=== PATIENT | male | born 1965 | race Caucasian/White ===

== ENCOUNTER 2022-02-13 09:21 | Inpatient (IN) | payer BC ==
[2022-02-13 10:23] LABS: #Basophils 0.1 10x3/uL (0.0-0.2); #Eosinphils 0.1 10x3/uL (0.0-0.5); #Monocytes 0.5 10x3/uL (0.0-1.1); #Neutrophils 7.9 10x3/uL (1.5-8.4); %Basophils 0.6 % (0.0-2.0); %Eosinophils 1.3 % (0.0-6.0); %Lymphocytes 14.3 % (18.0-47.0); %Neutrophils 78.4 % (40.0-75.0); Mean Corpuscular HGB CONC 34.8 g/dL (32.0-36.0); Mean Corpuscular Hemoglobin 29.9 pg (27.0-33.0); Mean Platelet Volume 10.3 fl (7.4-10.4); Platelet Count 254 10x3/uL (150-450); RBC Distribution Width 13.2 % (11.5-14.5); Red Blood Cell (RBC) Count 5.01 10x6/uL (4.32-5.72); White Blood Cell (WBC) Count 10.1 10x3/uL (3.5-10.5)
[2022-02-13 10:30] LABS: ALT (SGPT) 12 U/L (8-55); AST (SGOT) 7 U/L (5-34); Albumin 4.4 g/dL (3.5-5.0); Alkaline Phosphatase 71 U/L (40-110); Anion Gap 16 mmol/L (10-20); BUN (Urea Nitrogen) 17 mg/dL (8.4-25.7); Calc. Creatinine Clearance 0 mL/min (70-130); Calcium 8.6 mg/dL (7.8-10.44); Carbon Dioxide 26 mmol/L (22-29); Chloride 96 mmol/L (98-107); Globulin 2.8 g/dL (2.4-3.5); Glucose 526 mg/dL (70-105); Lipase 14 U/L (8-78); Potassium 4.2 mmol/L (3.5-5.1); Protein, Total 7.2 g/dL (6.0-8.3); Sodium 134 mmol/L (136-145)
[2022-02-13] MEDS ORDERED: Nitroglycerin 2% Ointment 1 INCH/1 GM Packet ONE (11:03)
[2022-02-13] MEDS ORDERED: Aspirin Chewable 81 MG TAB ONE (11:03)
[2022-02-13] MEDS ORDERED: Insulin Regular 300 UNITS/3 ML VIAL ONE (13:16)
[2022-02-13] MEDS ORDERED: Nitroglycerin 0.4 MG TAB (25 Tab Bottle) SL PRN (15:28)
[2022-02-13] MEDS ORDERED: HYDROcodone/Acetaminophen 5/325 mg Tablet PO PRN (15:30)
[2022-02-13] MEDS ORDERED: Ondansetron PF 4 MG/2 ML Vial IVP PRN (15:30)
[2022-02-13] MEDS ORDERED: Ondansetron ODT 4 MG TAB PO PRN (15:30)
[2022-02-13] MEDS ORDERED: Dextrose 5% in Water 1,000 ML IV PRN (15:32)
[2022-02-13] MEDS ORDERED: Dextrose 50% Abboject 50 ML SYRINGE SLOW IVP PRN (15:32)
[2022-02-13] MEDS ORDERED: hydrALAZINE 20 MG/ML VIAL SLOW IVP PRN (15:34)
[2022-02-13] MEDS ORDERED: Nicotine 7 MG PATCH TD PRN (15:37)
[2022-02-13] MEDS ORDERED: Electrolyte Replacement Protocol 1 EACH FS PRN (15:45)
[2022-02-13 15:56] VITALS: BMI 28.8
[2022-02-13 16:56] LABS: Troponin I Less than 0.010 ng/mL (< 0.028)
[2022-02-13] MEDS: HumaLOG 300 UNITS/3 ML VIAL SC PRN ×2 (17:47→21:01)
[2022-02-13] MEDS: metFORMIN 500 MG TAB PO SCH ×2 (17:47→20:38)
[2022-02-13 19:00] LABS: SARS-CoV-2 NAA Rapid Test Not Detected (NotDetected)
[2022-02-13 19:11] LABS: Troponin I Less than 0.010 ng/mL (< 0.028)
[2022-02-13] MEDS: Nitroglycerin 2% Ointment 1 INCH/1 GM Packet TOP SCH (22:42)
[2022-02-13] MEDS: Atorvastatin Calcium 10 MG TAB PO SCH (22:42)
[2022-02-14 04:31] LABS: #Basophils 0.1 10x3/uL (0.0-0.2); #Eosinphils 0.3 10x3/uL (0.0-0.5); #Monocytes 0.5 10x3/uL (0.0-1.1); #Neutrophils 4.7 10x3/uL (1.5-8.4); %Basophils 0.9 % (0.0-2.0); %Eosinophils 4.1 % (0.0-6.0); %Lymphocytes 28.4 % (18.0-47.0); %Monocytes 6.9 % (0.0-10.0); %Neutrophils 59.3 % (40.0-75.0); Hemoglobin 14.3 g/dL (13.5-17.5); Mean Corpuscular HGB CONC 34.5 g/dL (32.0-36.0); Mean Corpuscular Hemoglobin 29.5 pg (27.0-33.0); Mean Corpuscular Volume 85.7 fl (81.2-95.1); Mean Platelet Volume 10.6 fl (7.4-10.4); Platelet Count 254 10x3/uL (150-450); RBC Distribution Width 13.5 % (11.5-14.5); Red Blood Cell (RBC) Count 4.84 10x6/uL (4.32-5.72); White Blood Cell (WBC) Count 7.9 10x3/uL (3.5-10.5)
[2022-02-14 04:41] LABS: Anion Gap 14 mmol/L (10-20); BUN (Urea Nitrogen) 18 mg/dL (8.4-25.7); Calc. Creatinine Clearance 109 mL/min (70-130); Calcium 8.7 mg/dL (7.8-10.44); Carbon Dioxide 27 mmol/L (22-29); Cardiac Risk 5.2 (Less than 4.5); Chloride 100 mmol/L (98-107); Cholesterol 181 mg/dl (< 200 Desired); Glucose 355 mg/dL (70-105); HDL Cholesterol 35 mg/dL (>60 Neg Risk); LDL Cholesterol, Calculated 107 mg/dL; Magnesium 1.9 mg/dL (1.6-2.6); Potassium 4.2 mmol/L (3.5-5.1); Sodium 137 mmol/L (136-145); Triglycerides 195 mg/dL (Less than 150)
[2022-02-14] MEDS ORDERED: Magnesium 2 GM/50 ML(in water) 2 GM in Premix Bag 1 BAG IVPB SCH (06:00)
[2022-02-14] MEDS: Nitroglycerin 2% Ointment 1 INCH/1 GM Packet TOP SCH ×3 (06:30→22:08)
[2022-02-14] MEDS: HumaLOG 300 UNITS/3 ML VIAL SC PRN ×5 (06:33→21:24)
[2022-02-14] MEDS: glyBURIDE 5 MG TAB PO SCH ×2 (07:47→09:36)
[2022-02-14] MEDS: Lisinopril 2.5 MG TAB PO SCH (08:52)
[2022-02-14] MEDS: Aspirin Chewable 81 MG TAB PO SCH (08:52)
[2022-02-14] MEDS ORDERED: Alogliptin 6.25 MG TAB PO SCH ×2 (09:00)
[2022-02-14] MEDS ORDERED: Enoxaparin Sodium 40 MG/0.4 ML SYRINGE SC SCH (09:00)
[2022-02-14 12:33] LABS: Hemoglobin A1c 10.2 % (4.0-6.0)
[2022-02-14] MEDS ORDERED: Communication Order-Pharmacy FS SCH (13:00)
[2022-02-14] MEDS ORDERED: Prevnar 13-Val Conj/PF 0.5 ML SYRINGE IM ONE (16:45)
[2022-02-14] MEDS ORDERED: Gabapentin 100 MG CAP PO SCH (21:00)
[2022-02-14] MEDS ORDERED: Lantus 1000 UNITS/10 ML VIAL SC SCH (21:00)
[2022-02-14] MEDS: Atorvastatin Calcium 10 MG TAB PO SCH (21:18)
[2022-02-15 05:00] LABS: INR-International Normal Ratio 0.9; PTT 24.6 sec (22.0-33.0); Prothrombin Time 10.3 sec (9.5-12.1)
[2022-02-15 05:06] LABS: #Basophils 0.1 10x3/uL (0.0-0.2); #Eosinphils 0.3 10x3/uL (0.0-0.5); #Monocytes 0.6 10x3/uL (0.0-1.1); %Basophils 0.9 % (0.0-2.0); %Eosinophils 4.1 % (0.0-6.0); %Lymphocytes 33.3 % (18.0-47.0); Hemoglobin 13.6 g/dL (13.5-17.5); Mean Corpuscular HGB CONC 35.1 g/dL (32.0-36.0); Mean Corpuscular Hemoglobin 29.9 pg (27.0-33.0); Mean Corpuscular Volume 85.3 fl (81.2-95.1); Mean Platelet Volume 10.7 fl (7.4-10.4); Platelet Count 241 10x3/uL (150-450); RBC Distribution Width 13.2 % (11.5-14.5); Red Blood Cell (RBC) Count 4.55 10x6/uL (4.32-5.72); White Blood Cell (WBC) Count 7.5 10x3/uL (3.5-10.5)
[2022-02-15 05:07] LABS: ALT (SGPT) 11 U/L (8-55); AST (SGOT) 6 U/L (5-34); Albumin 3.5 g/dL (3.5-5.0); Alkaline Phosphatase 61 U/L (40-110); Anion Gap 13 mmol/L (10-20); BUN (Urea Nitrogen) 16 mg/dL (8.4-25.7); Bilirubin, Total 0.8 mg/dL (0.2-1.2); Calc. Creatinine Clearance 127 mL/min (70-130); Calcium 8.3 mg/dL (7.8-10.44); Carbon Dioxide 27 mmol/L (22-29); Chloride 101 mmol/L (98-107); Globulin 2.4 g/dL (2.4-3.5); Glucose 226 mg/dL (70-105); Potassium 3.7 mmol/L (3.5-5.1); Protein, Total 5.9 g/dL (6.0-8.3); Sodium 137 mmol/L (136-145)
[2022-02-15] MEDS: Aspirin Chewable 81 MG TAB PO SCH (06:22)
[2022-02-15] MEDS: Nitroglycerin 2% Ointment 1 INCH/1 GM Packet TOP SCH ×2 (06:23→14:25)
[2022-02-15] MEDS: Lisinopril 2.5 MG TAB PO SCH (06:24)
[2022-02-15] MEDS ORDERED: Magnesium 2 GM/50 ML(in water) 2 GM in Premix Bag 1 BAG IVPB SCH (07:00)
[2022-02-15] MEDS ORDERED: Nitroglycerin 50 MG/250 ML BOT 250 ML ONE (07:44)
[2022-02-15] MEDS ORDERED: Heparin 10,000 UNITS/ 10 ML VIAL ONE (07:44)
[2022-02-15] MEDS ORDERED: Lidocaine 1% MPF 2 ML VIAL ONE (07:44)
[2022-02-15] MEDS ORDERED: Lidocaine 1% (PF) 30 ML VIAL ONE (07:44)
[2022-02-15] MEDS ORDERED: Verapamil 5 MG/2 ML VIAL ONE (07:45)
[2022-02-15] MEDS ORDERED: Adenosine 6 MG/2 ML VIAL ONE (07:45)
[2022-02-15] MEDS ORDERED: Bivalirudin 250 MG VIAL ONE (07:45)
[2022-02-15] MEDS ORDERED: Fentanyl 100 MCG/2 ML VIAL ONE (08:16)
[2022-02-15] MEDS ORDERED: Midazolam HCl 2 mg/2 ml Vial ONE (08:17)
[2022-02-15] MEDS ORDERED: Iopamidol 300 61% 100 ML VIAL FS ONE (08:50)
[2022-02-15] MEDS ORDERED: Sodium Chloride 0.9% 200 ML IV PRN (08:52)
[2022-02-15] MEDS ORDERED: Acetaminophen/Codeine 30-300mg Tablet PO PRN ×2 (08:52)
[2022-02-15] MEDS ORDERED: Nitroglycerin 0.4 MG TAB (25 Tab Bottle) SL PRN (08:52)
[2022-02-15] MEDS ORDERED: Lantus 1000 UNITS/10 ML VIAL SC SCH (09:00)
[2022-02-15 10:51] VITALS: BP 117/84; TEMP 97
[2022-02-15] MEDS ORDERED: HumaLOG 300 UNITS/3 ML VIAL SC PRN ×2 (12:00)
[2022-02-15] MEDS: HumaLOG 300 UNITS/3 ML VIAL SC PRN ×2 (12:04→16:07)
[2022-02-16] MEDS ORDERED: glyBURIDE 5 MG TAB PO SCH (08:00)
[2022-02-16] MEDS ORDERED: Alogliptin 6.25 MG TAB PO SCH (09:00)
== END 2022-02-15 16:30 | disposition short-term general hospital (02) | DRG 287 ==
LOC: CSHERS 09:21 → CSHTELE 15:21 → INTOOBSV 15:21 → OBSVTOIN 02-15 11:00
PROVIDERS: ADMIT Family Medicine; ATTEND Emergency Medicine
PROC: 4A023N7 Measurement of Cardiac Sampling and Pressure, Left Heart, Percutaneous Approach (ICD-10-PCS; principal; 2022-02-15)
PROC: B2111ZZ Fluoroscopy of Multiple Coronary Arteries using Low Osmolar Contrast (ICD-10-PCS; 2022-02-15)
PROC: B2151ZZ Fluoroscopy of Left Heart using Low Osmolar Contrast (ICD-10-PCS; 2022-02-15)
DX: I25.110 Atherosclerotic heart disease of native coronary artery with unstable angina pectoris (principal); Z20.822 Contact with and (suspected) exposure to COVID-19; I10 Essential (primary) hypertension; R55 Syncope and collapse; E78.5 Hyperlipidemia, unspecified; F17.210 Nicotine dependence, cigarettes, uncomplicated; E11.42 Type 2 diabetes mellitus with diabetic polyneuropathy; Z80.8 Family history of malignant neoplasm of other organs or systems; Z83.6 Family history of other diseases of the respiratory system; Z71.6 Tobacco abuse counseling; Z79.82 Long term (current) use of aspirin; Z79.899 Other long term (current) drug therapy; Z79.84 Long term (current) use of oral hypoglycemic drugs; I25.2 Old myocardial infarction; Z86.73 Personal history of transient ischemic attack (TIA), and cerebral infarction without residual deficits
CPT/HCPCS: 36415; 36416; 71045; 71275; 80048; 80053; 80061; 83036; 83690; 83735; 83880; 84100; 84443; 84484; 85025; 85610; 85730; 93005; 93306; 93459; 93880; 94760; 96374; 96376; 99152; C1769; C1894; G0378; J0153; J0583; J1644; J1815; J2001; J2250; J3010; J3475; U0002

== ENCOUNTER 2023-06-18 14:05 | Inpatient (IN) | payer BC ==
[2023-06-18] MEDS ORDERED: Glucagon 1 MG/ML KIT IM PRN (15:36)
[2023-06-18] MEDS ORDERED: Dextrose 5% in Water 1,000 ML IV PRN (15:36)
[2023-06-18] MEDS ORDERED: Promethazine HCl 12.5 MG in Sodium Chloride 0.9% 50 ML IVPB PRN (16:03)
[2023-06-18] MEDS ORDERED: Sodium Chloride 0.9% 1,000 ML IV SCH (16:15)
[2023-06-18 16:49] VITALS: BMI 29.6
[2023-06-18 16:55] LABS: Actual Bicarbonate (HCO3v) 13.4 mEq/L (22-28); Base Excess -13.5 mEq/L (-2 - +2); Calcium, Ionized (venous) 1.07 mmol/L (1.16-1.32); Chloride (VBG) 104 mmol/L (98-106); Critical Notified Whom: NUGJU; Hematocrit-VBG 47 % (42.0-52.0); Hemoglobin (Hb) 15.9 g/dL (13.1-17.2); Potassium (VBG) 4.27 mmol/L (3.70-5.30); Puncture Site Other Site; RapidComm Collect By CBN; Sodium 145.4 mmol/L (133-146); pH (venous) 7.203 (7.32-7.43)
[2023-06-18] MEDS ORDERED: Ondansetron HCl/PF 8 MG, Admixture Fee 1 EACH in Sodium Chloride 0.9% 50 ML IVPB SCH (17:00)
[2023-06-18 17:07] LABS: #Basophils 0.1 10x3/uL (0.0-0.2); #Monocytes 0.9 10x3/uL (0.0-1.1); #Neutrophils 16.2 10x3/uL (1.5-8.4); %Basophils 0.3 % (0.0-2.0); %Lymphocytes 6.2 % (18.0-47.0); %Monocytes 4.7 % (0.0-10.0); Hematocrit 48.3 % (38.8-50.0); Hemoglobin 15.3 g/dL (13.5-17.5); Mean Corpuscular HGB CONC 31.7 g/dL (32.0-36.0); Mean Corpuscular Volume 88.5 fl (81.2-95.1); Mean Platelet Volume 10.7 fl (7.4-10.4); Platelet Count 291 10x3/uL (150-450); RBC Distribution Width 14.2 % (11.5-14.5); Red Blood Cell (RBC) Count 5.46 10x6/uL (4.32-5.72); White Blood Cell (WBC) Count 18.4 10x3/uL (3.5-10.5)
[2023-06-18 17:24] LABS: Anion Gap 28 mmol/L (10-20); BUN (Urea Nitrogen) 23 mg/dL (8.4-25.7); Calc. Creatinine Clearance 88 mL/min (70-130); Calcium 8.4 mg/dL (7.8-10.44); Carbon Dioxide 13 mmol/L (22-29); Chloride 105 mmol/L (98-107); Estimated GFR 75; Glucose 258 mg/dL (70-105); Phosphorus 4.1 mg/dL (2.3-4.7); Potassium 4.3 mmol/L (3.5-5.1); Sodium 142 mmol/L (136-145)
[2023-06-18] MEDS ORDERED: SODIUM BICARBONATE IV SCH (18:00)
[2023-06-18] MEDS ORDERED: ADMIXTURE FEE IV SCH (18:00)
[2023-06-18] MEDS ORDERED: SODIUM CHLORIDE IV SCH (18:00)
[2023-06-18] MEDS ORDERED: NS 0.9% w/ 20 MEQ KCL 1,000 ML IV PRN (18:26)
[2023-06-18] MEDS ORDERED: Dextrose 50% Abboject 50 ML SYRINGE SLOW IVP PRN (18:26)
[2023-06-18] MEDS ORDERED: Sodium Chloride 0.9% 1,000 ML IV PRN ×4 (18:26)
[2023-06-18] MEDS ORDERED: Dextrose 5 %-0.45 % NaCl 1,000 ML IV PRN (18:26)
[2023-06-18] MEDS ORDERED: Electrolyte Replacement Protocol 1 EACH IVPB PRN (18:26)
[2023-06-18 19:13] LABS: Anion Gap 29 mmol/L (10-20); BUN (Urea Nitrogen) 22 mg/dL (8.4-25.7); Calc. Creatinine Clearance 91 mL/min (70-130); Calcium 8.7 mg/dL (7.8-10.44); Carbon Dioxide 14 mmol/L (22-29); Chloride 106 mmol/L (98-107); Estimated GFR 77; Glucose 230 mg/dL (70-105); Potassium 4.2 mmol/L (3.5-5.1); Sodium 145 mmol/L (136-145)
[2023-06-18] MEDS ORDERED: INSULIN REGULAR IN 0.9 % NACL 100 UNITS in Premix Bag 1 BAG IVPB SCH (19:15)
[2023-06-18 19:18] LABS: Troponin I Less than 0.010 ng/mL (< 0.028)
[2023-06-18] MEDS: Ondansetron PF 4 MG/2 ML Vial IVP PRN (19:18)
[2023-06-18] MEDS: Pantoprazole 80 MG in Sodium Chloride 0.9% 100 ML IVP SCH (19:22)
[2023-06-18 19:43] LABS: Lactic Acid 2.6 mmol/L (0.5-2.2)
[2023-06-18 20:50] LABS: SARS-CoV-2 NAA Rapid Test Not Detected (NotDetected)
[2023-06-18] MEDS: NS 0.9% w/ 20 MEQ KCL 1,000 ML IV PRN ×2 (21:09→23:23)
[2023-06-18] MEDS: Dextrose 50% Abboject 50 ML SYRINGE SLOW IVP PRN ×2 (21:10→22:12)
[2023-06-18 21:54] LABS: Anion Gap 24 mmol/L (10-20); BUN (Urea Nitrogen) 21 mg/dL (8.4-25.7); Calc. Creatinine Clearance 92 mL/min (70-130); Calcium 8.4 mg/dL (7.8-10.44); Carbon Dioxide 16 mmol/L (22-29); Chloride 108 mmol/L (98-107); Estimated GFR 79; Glucose 165 mg/dL (70-105); Potassium 3.8 mmol/L (3.5-5.1); Sodium 144 mmol/L (136-145)
[2023-06-18 21:57] LABS: Troponin I Less than 0.010 ng/mL (< 0.028)
[2023-06-19] MEDS: Dextrose 50% Abboject 50 ML SYRINGE SLOW IVP PRN (01:12)
[2023-06-19] MEDS: D5 1/2 NS w/20 mEq KCL 1,000 ML IV PRN ×3 (01:13→10:09)
[2023-06-19] MEDS ORDERED: Labetalol HCl 100 MG/20 ML VIAL SLOW IVP SCH (03:00)
[2023-06-19 03:34] LABS: #Monocytes 1.6 10x3/uL (0.0-1.1); #Neutrophils 12.5 10x3/uL (1.5-8.4); %Basophils 0.3 % (0.0-2.0); %Lymphocytes 8.4 % (18.0-47.0); %Monocytes 10.5 % (0.0-10.0); %Neutrophils 80.2 % (40.0-75.0); Hematocrit 45.1 % (38.8-50.0); Hemoglobin 14.2 g/dL (13.5-17.5); Mean Corpuscular HGB CONC 31.5 g/dL (32.0-36.0); Mean Corpuscular Hemoglobin 28.6 pg (27.0-33.0); Mean Corpuscular Volume 90.7 fl (81.2-95.1); Mean Platelet Volume 10.2 fl (7.4-10.4); Platelet Count 272 10x3/uL (150-450); RBC Distribution Width 14.3 % (11.5-14.5); Red Blood Cell (RBC) Count 4.97 10x6/uL (4.32-5.72); White Blood Cell (WBC) Count 15.6 10x3/uL (3.5-10.5)
[2023-06-19 04:07] LABS: Anion Gap 21 mmol/L (10-20); BUN (Urea Nitrogen) 15 mg/dL (8.4-25.7); Calc. Creatinine Clearance 94 mL/min (70-130); Carbon Dioxide 14 mmol/L (22-29); Chloride 115 mmol/L (98-107); Estimated GFR 80; Glucose 239 mg/dL (70-105); Magnesium 2.2 mg/dL (1.6-2.6); Phosphorus 1.6 mg/dL (2.3-4.7); Potassium 4.3 mmol/L (3.5-5.1); Sodium 146 mmol/L (136-145)
[2023-06-19] MEDS: Pantoprazole 80 MG in Sodium Chloride 0.9% 100 ML IVP SCH (04:21)
[2023-06-19] MEDS ORDERED: Potassium Phosphate 15 MMOL in Sodium Chloride 0.9% 100 ML IVPB SCH (04:30)
[2023-06-19] MEDS: Ondansetron PF 4 MG/2 ML Vial IVP PRN ×3 (04:40→15:42)
[2023-06-19] MEDS ORDERED: Lidocaine 2% Viscous Solution 10 ML, Aluminum & Magnesium Hydroxide 30 ML SSW SCH ×2 (12:15→12:30)
[2023-06-19] MEDS: D5 1/2 NS w/20 mEq KCL 1,000 ML IV SCH ×2 (12:36→19:12)
[2023-06-19] MEDS ORDERED: Mag-Al 1200 mg/1200 mg/30 ML UDCUP PO SCH (12:45)
[2023-06-19 13:10] LABS: Anion Gap 14 mmol/L (10-20); BUN (Urea Nitrogen) 9 mg/dL (8.4-25.7); Calc. Creatinine Clearance 96 mL/min (70-130); Carbon Dioxide 18 mmol/L (22-29); Chloride 115 mmol/L (98-107); Estimated GFR 89; Glucose 196 mg/dL (70-105); Potassium 4.1 mmol/L (3.5-5.1); Sodium 143 mmol/L (136-145)
[2023-06-19] MEDS: Metoclopramide HCl 10 MG/2 ML VIAL IVP SCH ×2 (13:19→17:34)
[2023-06-19] MEDS ORDERED: Dextrose 50% Abboject 50 ML SYRINGE SLOW IVP PRN (18:53)
[2023-06-19] MEDS ORDERED: HumaLOG 300 UNITS/3 ML VIAL SC PRN (18:53)
[2023-06-19] MEDS ORDERED: Glucagon 1 MG/ML KIT IM PRN (18:53)
[2023-06-19] MEDS ORDERED: Dextrose 5% in Water 1,000 ML IV PRN (18:53)
[2023-06-19] MEDS: Pantoprazole 40 MG VIAL IVP SCH (21:54)
[2023-06-20] MEDS: Metoclopramide HCl 10 MG/2 ML VIAL IVP SCH ×2 (01:07→08:24)
[2023-06-20] MEDS: Ondansetron PF 4 MG/2 ML Vial IVP PRN ×3 (02:12→16:00)
[2023-06-20 03:31] LABS: #Monocytes 0.9 10x3/uL (0.0-1.1); #Neutrophils 9.8 10x3/uL (1.5-8.4); %Basophils 0.3 % (0.0-2.0); %Eosinophils 0.2 % (0.0-6.0); %Lymphocytes 11.1 % (18.0-47.0); %Monocytes 7.3 % (0.0-10.0); %Neutrophils 80.4 % (40.0-75.0); Hematocrit 41.9 % (38.8-50.0); Hemoglobin 13.6 g/dL (13.5-17.5); Mean Corpuscular HGB CONC 32.5 g/dL (32.0-36.0); Mean Corpuscular Hemoglobin 28.2 pg (27.0-33.0); Mean Corpuscular Volume 86.9 fl (81.2-95.1); Mean Platelet Volume 10.1 fl (7.4-10.4); Platelet Count 250 10x3/uL (150-450); RBC Distribution Width 14.3 % (11.5-14.5); Red Blood Cell (RBC) Count 4.82 10x6/uL (4.32-5.72); White Blood Cell (WBC) Count 12.1 10x3/uL (3.5-10.5)
[2023-06-20 03:46] LABS: Anion Gap 18 mmol/L (10-20); BUN (Urea Nitrogen) 7 mg/dL (8.4-25.7); Calc. Creatinine Clearance 110 mL/min (70-130); Carbon Dioxide 17 mmol/L (22-29); Chloride 108 mmol/L (98-107); Estimated GFR 101; Glucose 173 mg/dL (70-105); Potassium 4.1 mmol/L (3.5-5.1); Sodium 139 mmol/L (136-145)
[2023-06-20] MEDS ORDERED: Labetalol HCl 100 MG/20 ML VIAL SLOW IVP SCH (04:30)
[2023-06-20 08:07] LABS: Anion Gap 19 mmol/L (10-20); BUN (Urea Nitrogen) 7 mg/dL (8.4-25.7); Calc. Creatinine Clearance 100 mL/min (70-130); Calcium 8.2 mg/dL (7.8-10.44); Carbon Dioxide 19 mmol/L (22-29); Chloride 106 mmol/L (98-107); Estimated GFR 99; Glucose 191 mg/dL (70-105); Potassium 4.4 mmol/L (3.5-5.1); Sodium 140 mmol/L (136-145)
[2023-06-20] MEDS: D5 1/2 NS w/20 mEq KCL 1,000 ML IV SCH (08:23)
[2023-06-20] MEDS: HumaLOG 300 UNITS/3 ML VIAL SC PRN ×3 (08:23→16:11)
[2023-06-20] MEDS: Pantoprazole 40 MG VIAL IVP SCH ×2 (08:24→21:15)
[2023-06-20] MEDS: Metoclopramide HCl 10 MG/2 ML VIAL IVP PRN ×2 (13:19→21:15)
[2023-06-21] MEDS: D5 1/2 NS w/20 mEq KCL 1,000 ML IV SCH ×2 (01:07→16:42)
[2023-06-21] MEDS: Ondansetron PF 4 MG/2 ML Vial IVP PRN ×2 (01:13→14:59)
[2023-06-21] MEDS: Metoclopramide HCl 10 MG/2 ML VIAL IVP PRN ×2 (02:16→08:44)
[2023-06-21] MEDS: HumaLOG 300 UNITS/3 ML VIAL SC PRN (05:18)
[2023-06-21] MEDS ORDERED: Promethazine HCl 12.5 MG, Admixture Fee 1 EACH in Sodium Chloride 0.9% 50 ML IVPB SCH (05:45)
[2023-06-21] MEDS ORDERED: Labetalol HCl 100 MG/20 ML VIAL SLOW IVP SCH (05:45)
[2023-06-21 05:46] LABS: Anion Gap 20 mmol/L (10-20); BUN (Urea Nitrogen) 7 mg/dL (8.4-25.7); Calc. Creatinine Clearance 109 mL/min (70-130); Calcium 8.1 mg/dL (7.8-10.44); Carbon Dioxide 19 mmol/L (22-29); Chloride 101 mmol/L (98-107); Estimated GFR 101; Glucose 197 mg/dL (70-105); Sodium 136 mmol/L (136-145)
[2023-06-21] MEDS: Pantoprazole 40 MG VIAL IVP SCH ×2 (08:44→21:25)
[2023-06-21] MEDS: Metoclopramide HCl 10 MG/2 ML VIAL IVP SCH ×3 (14:46→21:25)
[2023-06-21] MEDS: Thiamine HCl 100 MG, Admixture Fee 1 EACH in Sodium Chloride 0.9% 50 ML IVPB SCH (14:59)
[2023-06-22 04:48] LABS: Anion Gap 17 mmol/L (10-20); BUN (Urea Nitrogen) 7 mg/dL (8.4-25.7); Calc. Creatinine Clearance 120 mL/min (70-130); Calcium 7.9 mg/dL (7.8-10.44); Carbon Dioxide 23 mmol/L (22-29); Chloride 98 mmol/L (98-107); Estimated GFR 103; Glucose 213 mg/dL (70-105); Magnesium 1.9 mg/dL (1.6-2.6); Potassium 3.7 mmol/L (3.5-5.1); Sodium 134 mmol/L (136-145)
[2023-06-22 04:52] LABS: Phosphorus 1.4 mg/dL (2.3-4.7)
[2023-06-22] MEDS ORDERED: Potassium Phosphate 15 MMOL in Sodium Chloride 0.9% 100 ML IVPB SCH (06:00)
[2023-06-22] MEDS: Metoclopramide HCl 10 MG/2 ML VIAL IVP SCH ×3 (06:13→16:52)
[2023-06-22] MEDS ORDERED: Magnesium 2 GM/50 ML(in water) 2 GM in Premix Bag 1 BAG IVPB SCH (09:00)
[2023-06-22] MEDS: Pantoprazole 40 MG VIAL IVP SCH ×2 (09:38→20:56)
[2023-06-22] MEDS: D5 1/2 NS w/20 mEq KCL 1,000 ML IV SCH ×2 (14:37→16:53)
[2023-06-22] MEDS: Thiamine HCl 100 MG, Admixture Fee 1 EACH in Sodium Chloride 0.9% 50 ML IVPB SCH (14:38)
[2023-06-23] MEDS: Metoclopramide HCl 10 MG/2 ML VIAL IVP SCH ×3 (00:07→12:06)
[2023-06-23 05:35] LABS: #Basophils 0.1 10x3/uL (0.0-0.2); #Eosinphils 0.2 10x3/uL (0.0-0.5); #Monocytes 0.7 10x3/uL (0.0-1.1); #Neutrophils 3.3 10x3/uL (1.5-8.4); %Basophils 0.8 % (0.0-2.0); %Eosinophils 3.4 % (0.0-6.0); %Lymphocytes 29.2 % (18.0-47.0); %Monocytes 10.7 % (0.0-10.0); %Neutrophils 54.8 % (40.0-75.0); Hematocrit 43.5 % (38.8-50.0); Hemoglobin 14.8 g/dL (13.5-17.5); Mean Corpuscular Hemoglobin 27.9 pg (27.0-33.0); Mean Corpuscular Volume 81.9 fl (81.2-95.1); Mean Platelet Volume 9.7 fl (7.4-10.4); Platelet Count 239 10x3/uL (150-450); RBC Distribution Width 13.3 % (11.5-14.5); Red Blood Cell (RBC) Count 5.31 10x6/uL (4.32-5.72); White Blood Cell (WBC) Count 6.1 10x3/uL (3.5-10.5)
[2023-06-23] MEDS: D5 1/2 NS w/20 mEq KCL 1,000 ML IV SCH (05:41)
[2023-06-23 05:50] LABS: Anion Gap 14 mmol/L (10-20); BUN (Urea Nitrogen) 7 mg/dL (8.4-25.7); Calc. Creatinine Clearance 125 mL/min (70-130); Calcium 8.1 mg/dL (7.8-10.44); Carbon Dioxide 27 mmol/L (22-29); Chloride 99 mmol/L (98-107); Estimated GFR 105; Glucose 226 mg/dL (70-105); Magnesium 2.1 mg/dL (1.6-2.6); Potassium 3.7 mmol/L (3.5-5.1); Sodium 136 mmol/L (136-145)
[2023-06-23 06:44] LABS: ALT (SGPT) 10 U/L (8-55); AST (SGOT) 7 U/L (5-34); Albumin 3.5 g/dL (3.5-5.0); Alkaline Phosphatase 59 U/L (40-110); Anion Gap 14 mmol/L (10-20); BUN (Urea Nitrogen) 7 mg/dL (8.4-25.7); Bilirubin, Total 1.6 mg/dL (0.2-1.2); Calc. Creatinine Clearance 0 mL/min (70-130); Calcium 8.1 mg/dL (7.8-10.44); Carbon Dioxide 27 mmol/L (22-29); Chloride 99 mmol/L (98-107); Estimated GFR 105; Globulin 2.8 g/dL (2.4-3.5); Glucose 227 mg/dL (70-105); Potassium 3.7 mmol/L (3.5-5.1); Protein, Total 6.3 g/dL (6.0-8.3); Sodium 136 mmol/L (136-145)
[2023-06-23] MEDS: HumaLOG 300 UNITS/3 ML VIAL SC PRN ×2 (07:02→08:08)
[2023-06-23] MEDS: Pantoprazole 40 MG VIAL IVP SCH (08:09)
[2023-06-23] MEDS ORDERED: Metoprolol Tartrate 50 MG TAB PO SCH (09:00)
[2023-06-23] MEDS ORDERED: Potassium Phosphate 15 MMOL in Sodium Chloride 0.9% 100 ML IVPB SCH (09:00)
[2023-06-23] MEDS ORDERED: Lisinopril 2.5 MG TAB PO SCH (09:00)
[2023-06-23] MEDS ORDERED: Empagliflozin 25 MG TAB PO SCH (09:00)
[2023-06-23] MEDS ORDERED: Gabapentin 400 MG CAP PO SCH (09:00)
[2023-06-23 13:19] VITALS: BP 107/71; TEMP 97.8
[2023-06-23] MEDS ORDERED: Atorvastatin Calcium 20 MG TAB PO SCH (21:00)
== END 2023-06-23 15:10 | disposition home or self-care (01) | DRG 637 ==
LOC: OBSVTOIN 15:26 → CSHTELE 15:26 → CSHICU 19:08 → CSHTELE 06-20 19:21
PROVIDERS: ADMIT Family Medicine; ATTEND Family Medicine
PROC: 4A043R1 Measurement of Venous Saturation, Peripheral, Percutaneous Approach (ICD-10-PCS; principal; 2023-06-18)
DX: E11.10 Type 2 diabetes mellitus with ketoacidosis without coma (principal); G93.41 Metabolic encephalopathy; K92.0 Hematemesis; A15.9 Respiratory tuberculosis unspecified; E11.43 Type 2 diabetes mellitus with diabetic autonomic (poly)neuropathy; I10 Essential (primary) hypertension; E78.5 Hyperlipidemia, unspecified; I25.10 Atherosclerotic heart disease of native coronary artery without angina pectoris; E86.0 Dehydration; D72.829 Elevated white blood cell count, unspecified; R07.89 Other chest pain; J02.9 Acute pharyngitis, unspecified; K31.84 Gastroparesis; Z20.822 Contact with and (suspected) exposure to COVID-19; G47.33 Obstructive sleep apnea (adult) (pediatric); Z95.1 Presence of aortocoronary bypass graft; Z79.899 Other long term (current) drug therapy; Z87.891 Personal history of nicotine dependence; Z79.84 Long term (current) use of oral hypoglycemic drugs
CPT/HCPCS: 36415; 36416; 70450; 71045; 74018; 80048; 82010; 82805; 83605; 83690; 83735; 83930; 84100; 84484; 85025; 93005; 93010; 94760; 94762; 96374; C9113; G0378; J1815; J2405; J2550; J2765; J3411; J3475; J3480; J3490; J7050; J7999